=== PATIENT | female | born 1950 | race Two or more races ===

== ENCOUNTER 2022-09-12 19:42 | Emergency (ER) | payer MEDICARE, MEDICAID ==
[~2022-09-12] VITALS: Ht 149.9 cm; Wt 50.9 kg
[2022-09-12 20:26] LABS: Basophils # (auto) 0 10 ^3/uL (0-0.2); Basophils % (auto) 0.7 % (0.0-2.0); Eosinophils # (auto) 0.1 10 ^3/uL (0-0.8); Eosinophils % (auto) 1.3 % (0.0-7.0); Hematocrit 39.6 % (36.0-46.0); Hemoglobin 13.2 g/dL (12.2-16.2); Lymphocytes # (auto) 2.4 10 ^3/uL (0.4-5.4); Lymphocytes % (auto) 44.8 % (10.0-50.0); Mean Corpuscular Hemoglobin 28.8 pg (28.0-32.0); Mean Corpuscular Hgb Conc. 33.4 g/dL (32.0-36.0); Mean Corpuscular Volume 86.1 fL (80.0-100.0); Monocytes # (auto) 0.5 10 ^3/uL (0-1.3); Monocytes % (auto) 9.1 % (0.0-12.0); Neutrophils # (auto) 2.3 10 ^3/uL (1.6-8.6); Neutrophils % (auto) 44.1 % (37.0-80.0); Nucleated Red Blood Cells % 0.2 %; Red Cell Distribution Width 14.5 % (11.8-14.3); White Blood Cell 5.3 10^3/uL (4.4-10.8)
[2022-09-12 20:37] LABS: Albumin 3.9 g/dL (3.4-5.0); BUN/Creatinine Ratio 32.8; Calcium 9.2 mg/dL (8.5-10.1); Potassium 4.2 mmol/L (3.5-5.1)
[2022-09-12 20:40] LABS: Bilirubin, Total 0.2 mg/dL (0.2-1.0)
[2022-09-12 20:42] LABS: INR 1.29 (0.9-1.15); Partial Thromboplastin Time 36.6 sec (24.6-33.4)
[2022-09-12 22:34] VITALS: BP 131/88
== END 2022-09-12 22:42 | disposition home or self-care (01) ==
LOC: ER 19:44
DX: R07.89 Other chest pain (principal)
CPT/HCPCS: 36415; 71045; 80053; 83880; 84484; 85025; 85610; 85730; 93005

== ENCOUNTER 2022-11-22 16:42 | Emergency (ER) | payer MEDICARE, MEDICAID ==
[~2022-11-22] VITALS: Ht 149.9 cm; Wt 49.0 kg
[2022-11-22] MEDS ORDERED: RIVAROXABAN 20 MG TAB PO ONE (20:00)
[2022-11-22] MEDS ORDERED: RIVA20TA PO (20:10)
[2022-11-22 21:30] VITALS: BP 139/87
== END 2022-11-22 23:30 | disposition home or self-care (01) ==
LOC: ER 16:42
DX: I10 Essential (primary) hypertension (principal); E78.5 Hyperlipidemia, unspecified; Z76.0 Encounter for issue of repeat prescription